=== PATIENT | female | born 1985 | race Caucasian/White ===

== ENCOUNTER 2016-07-21 06:25 | Outpatient (CLI) | payer MEDICAID ==
[2016-07-21 06:57] LABS: APPEARANCE,URINE CLEAR; BILIRUBIN,URINE NEGATIVE (NEGATIVE); GLUCOSE, URINE NEGATIVE (NEGATIVE); KETONES,URINE NEGATIVE (NEGATIVE); LEUKOCYTE ESTERASE,URINE NEGATIVE (NEGATIVE); NITRITE,URINE NEGATIVE (NEGATIVE); PROTEIN,URINE NEGATIVE (NEGATIVE); URINE SPECIFIC GRAVITY 1.003; UROBILINOGEN,URINE NEGATIVE mg/dL (<2.0)
[2016-07-21 07:11] LABS: URINE BARBITURATES SCREEN NEGATIVE; URINE METHADONE SCREEN NEGATIVE; URINE OPIATES LOW NEGATIVE; URINE PHENCYCLIDINE SCREEN NEGATIVE
--- NOTE | 2016-07-21 08:00 | L&D Flow Sheet ---
LD Flowsheet Datetime Report Generated by CPN: 07/21/2016 08:00 Datetime: 07/21/2016 07:47 NBP Sys/Thao/Mean (mmHg): 105 (QS system process) : 56 (QS system process) : 77 (QS system process) Pulse: 82 (QS system process) LaborFlag: Antepartum (QS system process) Datetime: 07/21/2016 07:17 NBP Sys/Thao/Mean (mmHg): 127 (QS system process) : 58 (QS system process) : 84 (QS system process) Pulse: 90 (QS system process) LaborFlag: Antepartum (QS system process) Datetime: 07/21/2016 07:15 Communication Communication: Report Given to @ J Halsmer RN (Janice Ledgerwood, RN) Datetime: 07/21/2016 07:00 Uterine Activity Monitor Mode: External; Palpation (Janice Ledgerwood, RN) Frequency (min): 3-5 (Janice Ledgerwood, RN) Quality: Mild (Janice Ledgerwood, RN) Duration (sec): 60-80 (Janice Ledgerwood, RN) Duration Criteria: Less than Two 120 Second Contractions (Janice Ledgerwood, RN) Pattern: Normal: <= 5 Contractions in 10 Minutes (Janice Ledgerwood, RN) Resting Tone (Palpate): Relaxed (Janice Ledgerwood, RN) Assessment A Monitor Mode: External US (Janice Ledgerwood, RN) FHR Baseline Rate : 140 (Janice Ledgerwood, RN) FHR Baseline Changes: No Baseline Change (Janice Ledgerwood, RN) Variability: Moderate 6-25 bpm (Janice Ledgerwood, RN) Accelerations: 10X10 (Janice Ledgerwood, RN) Decelerations: None (Janice Ledgerwood, RN) Datetime: 07/21/2016 06:46 NBP Sys/Thao/Mean (mmHg): 100 (QS system process) : 55 (QS system process) : 74 (QS system process) Pulse: 90 (QS system process) Respirations: 15 (Janice Jiménez, RN) LaborFlag: Antepartum (QS system process) Datetime: 07/21/2016 06:45 Pain Pain Scale: 4 (Janice Jiménez RN) Pain Presence: Intermittent (Janice Jiménez, RN) Pain Type: Contraction (Janice Hollandgerjahaira, RN) Pain Location: Abdomen; Back (Janice Jiménez, RN) Pain Coping: Breathing Through Contractions (Janice Jiménez, RN) Vaginal Exam Vaginal Bleeding: None (Janice Ledgerwood, RN) Maternal Assessment Level of Consciousness: Fully Conscious (Janice Ledgerwood, RN) DTR's/Clonus: DTRs 2+; No Clonus (Janice Ledgerwood, RN) Headache: Denies (Janice Ledgerwood, RN) Breath Sounds, Left: Clear and Equal (Janice Ledgerwood, RN) Breath Sounds, Right: Clear and Equal (Janice Ledgerwood, RN) Nausea/Vomiting: Denies (Janice Ledgerwood, RN) RUQ Epigastric Pain: Denies (Janice Ledgerwood, RN) Teaching Instructional Method: Demo; Verbal; Patient Instructed (Janice Jiménez, RN) Plan of Care: Plan of Care Discussed (Janice Jiménez, RN) Unit Routine: Mclean to Room; Call Plummer; Bed; Handwashing; Monitoring; Safety/Fall Risk Prevention (Janice Hollandgerwood, RN) LaborFlag: Antepartum (QS system process) Datetime: 07/21/2016 06:39 FHR Baseline Changes: Unable to Determine (Janice Ledgerwood, RN) Datetime: 07/21/2016 06:33 Vital Signs Stage of : Antepartum (Janice Jiménez RN)
[2016-07-21] MEDS ORDERED: HYDROXYZINE PAMOATE 50 MG CAPSULE ONE (08:19)
--- NOTE | 2016-07-21 08:36 | Non Stress Test Report ---
Non Stress Test Datetime Report Generated by CPN: 07/21/2016 08:36 DEMOGRAPHIC EGA NST: 38.0 INDICATION Indication for Study: Ordered by Provider Indication for Study (NST) Other: CTX MONITORING Monitor Explained: Monitor Explained; Test Explained; Patient Verbalized Understanding Time on Monitor: 07/21/2016 06:42 Time off Monitor: 07/21/2016 07:59 NST Duration: 77 NST INTERVENTIONS NST Interventions: PO Hydration Physician Notified NST: Dr. Vasquez Physician Notified NST: DR VASQUZE BABY A: [id number] BABY A Movement : Present Contraction Frequency : 4-7 FHR Baseline : 140 Accelerations : 15X15 Decelerations : None Variability : Moderate 6-25bpm NST Review: Meets Criteria for Reactive NST NST Review and Verified By : MARLENE Clemente Results: Reactive NST REPORT Report Trigger: Send Report Report Trigger: Send Report
--- NOTE | 2016-07-21 10:00 | L&D Flow Sheet ---
LD Flowsheet Datetime Report Generated by CPN: 07/21/2016 10:00 Datetime: 07/21/2016 08:01 Communication Comments: CARE NOTES REVIEWED AND SIGNED TO INCLUDE KICK COUNTS AND LABOR SIGNS. PT HAS OFFICE APPT ON 07/24/16 AND TOLD TO KEEP SCHEDULED APPT. PT AND FAMILY STATED UNDERSTAND. (Steph Halsmer, RN) Datetime: 07/21/2016 08:00 Monitor Mode: External (Steph Halsmer, RN) Frequency (min): IRREGULAR CTX (Steph Halsmer, RN) Quality: Mild (Steph Miguel RN) Duration (sec): 40-80 (Steph Miguel RN) Duration Criteria: Less than Two 120 Second Contractions (Steph Miguel RN) Resting Tone (Palpate): Relaxed (Steph Miguel RN) Monitor Mode: External US (Steph Miguel RN) FHR Baseline Rate : 130 (Steph Miguel RN) Variability: Moderate 6-25 bpm (Steph Miguel RN) Accelerations: 15X15 (Steph Miguel RN) Decelerations: None (Steph Miguel RN)
--- NOTE | 2016-07-21 10:45 | L&D Current Admission ---
Current Admit Datetime Report Generated by CPN: 07/21/2016 10:45 ADMISSION INFORMATION Chief Complaint: Contractions (07/21/2016 06:45:Janice Jiménez, RN)
--- NOTE | 2016-07-21 10:45 | L&D Admission Assessment ---
LD ADM ASMT Datetime Report Generated by CPN: 07/21/2016 10:45 PATIENT ASSESSMENT Assessment Type: Triage (07/21/2016 06:45:Janice Ledgerwood, RN) WEIGHT Weight (lb): 238 (07/21/2016 07:42:QS system process) Weight (kg): 108.2 (07/21/2016 07:42:QS system process) PAIN Pain Scale: 4 (07/21/2016 06:45:Janice Jiménez RN) Pain Presence: Intermittent (07/21/2016 06:45:Janice Jiménez RN) Pain Type: Contraction (07/21/2016 06:45:Janice Jiménez RN) Pain Location: Abdomen; Back (07/21/2016 06:45:Janice Jiménez RN) CONTRACTIONS Frequency (min): IRREGULAR CTX (07/21/2016 08:00:Steph Miguel RN) Frequency (min): 4-7 (07/21/2016 07:30:Steph Miguel RN) Frequency (min): 3-5 (07/21/2016 07:00:Janice Jiménez RN) Duration (sec): 40-80 (07/21/2016 08:00:Steph Miguel RN) Duration (sec): 50-100 (07/21/2016 07:30:Steph Miguel RN) Duration (sec): 60-80 (07/21/2016 07:00:Janice Jiménez RN) Quality: Mild (07/21/2016 08:00:Steph Miguel RN) Quality: Mild (07/21/2016 07:30:Steph Miguel RN) Quality: Mild (07/21/2016 07:00:Janice Jiménez RN) Pattern: Normal: <= 5 Contractions in 10 Minutes (07/21/2016 07:00:Janice Jiménez RN) Resting Tone [place]: Relaxed (07/21/2016 08:00:Steph Miguel RN) Resting Tone [place]: Relaxed (07/21/2016 07:30:Steph Miguel RN) Resting Tone [place]: Relaxed (07/21/2016 07:00:Janice Jiménez RN) VAGINAL EXAM Dilatation (cm): 0.0 (07/21/2016 07:09:Steph Miguel RN) Station: -2 (07/21/2016 07:09:Steph Miguel RN) NEURO Level of Consciousness: Fully Conscious (07/21/2016 06:45:Janice Jiménez RN) DTR's/Clonus: DTRs 2+; No Clonus (07/21/2016 06:45:Janicejames Hollandgerjahaira, RN) Headache: Denies (07/21/2016 06:45:Janice Ledgerwood, RN) Dizziness: No (07/21/2016 06:45:Janicejames Jiménez, RN) Blurred Vision: No (07/21/2016 06:45:Janice Ledgerwood, RN) Extremity Numbness/Tingling : None (07/21/2016 06:45:Janice Hollandgerjahaira, RN) Extremity Movement: Full Range of Motion (07/21/2016 06:45:Janice Ledgerwood, RN) CARDIOVASCULAR Nailbeds: [place] (07/21/2016 06:45:Janice Jiménez, RN) Capillary Refill: Less than 3 Seconds (07/21/2016 06:45:Janice Ledgerwood, RN) Facial Edema: None (07/21/2016 06:45:Janice Ledgerwood, RN) Lluvia's Sign Left Leg: Negative (07/21/2016 06:45:Janicejames Hollandgerwood, RN) Lluvia's Sign Right Leg: Negative (07/21/2016 06:45:Janice Ledgerwood, RN) RESPIRATORY Respiratory Effort: Unlabored; Regular Rhythm; Equal Expansion (07/21/2016 06:45:Janice Skylergerjahaira, RN) Breath Sounds, Left: Clear and Equal (07/21/2016 06:45:Janice Ledgerwood, RN) Breath Sounds, Right: Clear and Equal (07/21/2016 06:45:Janice Ledgerwood, RN) Cough Productivity: None (07/21/2016 06:45:Janice Ledgerwood, RN) GASTROINTESTINAL Nausea/Vomiting: Denies (07/21/2016 06:45:Janice Jiménez, RN) Bowel Sounds: Normoactive; All Quadrants (07/21/2016 06:45:Janice Jiménez, RN) RUQ Epigastric Pain: Denies (07/21/2016 06:45:Janice Jiménez, RN) Bowel Patterns: Soft, Formed Stool (07/21/2016 06:45:Janice Jiménez, RN) Hemorrhoids: None (07/21/2016 06:45:Janice Jiménez, RN) Diet Type: Regular diet (07/21/2016 06:45:Janice Jiménez, RN) Last Meal: 07/20/2016 20:00 (07/21/2016 06:45:Janicejames Hollandgerjahaira, RN) GENITOURINARY Bladder: Nondistended (07/21/2016 06:45:[facility] Frequency of Urination: No (07/21/2016 06:45:[facility], ) Urination Burning: No (07/21/2016 06:45:[facility], ) CVA Tenderness: No (07/21/2016 06:45:[facility], ) Vaginal Bleeding: None (07/21/2016 06:45:[facility], ) Vaginal Discharge Color: N/A (07/21/2016 06:45:[facility]) INTEGUMENTARY Skin Color: Normal for Race [facility]2016 [facility] Skin Temperature: Warm (07/21/2016 06:45:[facility]) Skin Moisture: Dry (07/21/2016 06:45:[facility]) JEAN SKIN ASSESSMENT Jean Scale Sensory Perception: No Impairment- Responds to verbal commands. Has no sensory deficit which would limit ability to feel or voice pain or discomfort (07/21/2016 06:45:Janice Jiménez RN) Jean Scale Moisture: Rarely Moist- Skin is usually dry. Linen only requires changing at routine intervals (07/21/2016 06:45:Janice Jiménez RN) Jean Scale Activity: Walks Frequently- Walks outside the room at least twice a day and inside room at least every 2 hours during the day. (07/21/2016 06:45:Janice Jiménez RN) Jean Scale Mobility: No Limitations- Makes major and frequent changes in position without assistance (07/21/2016 06:45:Janice Jiménez RN) Jaen Scale Nutrition: Excellent- Eats most of every meal. Never refuses a meal. Usually eats a total of 4 or more servings of meat and dairy products. Occasionally eats between meals. Does not require supplementation (07/21/2016 06:45:Janice Jiménez RN) Jean Scale Friction and Shear: No Apparent Problem- Moves in bed and in chair independently and has sufficient muscle strength to lift up completely during move. Maintains good position in bed or chair at all times (07/21/2016 06:45:Janice Jiménez RN) Jean Scale Total: 23 (07/21/2016 06:45:QS system process) Jean Scale Risk: No Risk of Pressure Ulcer Noted at this Time (07/21/2016 06:45:QS system process) SUPPORT Family Support: Family supportive (07/21/2016 06:45:Janice Jiménez RN) Emotional State: Calm/Relaxed (07/21/2016 06:45:Janice Jiménez RN) SAFETY Call Plummer Within Reach: Yes (07/21/2016 06:45:Jaince Jiménez RN) Side Rails Up: Yes (07/21/2016 06:45:Janice Jiménez RN) Bed Wheels Locked: Yes (07/21/2016 06:45:Janice Jiménez RN) Arm Bands Present: Yes (07/21/2016 06:45:Janice Jiménez RN) FALL SCREEN Fall Risk History of Falling: (0) No (07/21/2016 06:45:Janice Jiménez RN) Fall Risk Secondary Diagnosis: (0) No (07/21/2016 06:45:Janice Jiménez RN) Fall Risk Ambulatory Aid: (0) None/Bedrest/Wheelchair/Nurse Assist (07/21/2016 06:45:Janice Jiménez RN) Fall Risk IV Therapy: (0) No (07/21/2016 06:45:Janice Jiménez RN) Fall Risk Gait: (0) Normal/Bedrest/Immobile (07/21/2016 06:45:Janice Jiménez RN) Fall Risk Mental Status: (0) Oriented to Own Ability (07/21/2016 06:45:Janice Jiménez RN) Fall Risk Score: 0 (07/21/2016 06:45:QS system process) Fall Risk Score Definition: No Risk: No action required (07/21/2016 06:45:QS system process) RECENT TRAVEL/INFECTIOUS DISEASE Pt/Family Education: Handwashing Hygiene (07/21/2016 06:45:Janice Jiménez RN) BABY A FHR Baseline Rate (bpm) Baby A: 130 (07/21/2016 08:00:Steph Miguel RN) FHR Baseline Rate (bpm) Baby A: 140 (07/21/2016 07:30:Steph Miguel RN) FHR Baseline Rate (bpm) Baby A: 140 (07/21/2016 07:00:Janice Jiménez RN) Variability Baby A: Moderate 6-25 bpm (07/21/2016 08:00:Steph Miguel RN) Variability Baby A: Moderate 6-25 bpm (07/21/2016 07:30:Steph Miguel RN) Variability Baby A: Moderate 6-25 bpm (07/21/2016 07:00:Janice Jiménez RN) Accelerations Baby A: 15X15 (07/21/2016 08:00:Steph Miguel RN) Accelerations Baby A: 15X15 (07/21/2016 07:30:Steph Miguel RN) Accelerations Baby A: 10X10 (07/21/2016 07:00:Janice Jiménez RN) Decelerations Baby A: None (07/21/2016 08:00:Steph Miguel RN) Decelerations Baby A: None (07/21/2016 07:30:Steph Miguel RN) Decelerations Baby A: None (07/21/2016 07:00:Janice Jiménez RN)
--- NOTE | 2016-07-21 10:45 | L&D Discharge Summary ---
OB Discharge Summary Datetime Report Generated by CPN: 07/21/2016 10:45 DISCHARGE DIAGNOSIS Diagnosis/Symptoms: False Labor Parity: 1 DIET/ACTIVITY/RESTRICTIONS Diet: Regular Activity: Normal Activity TEACHING/INSTRUCTIONS/REFERRALS Unable to Give Instructions: N/A Instructions Given To: PT AND FAMILY Instructions Understood: Patient Verbalized Understanding; Support Person Verbalized Understanding Referrals: None Educational Materials- Other: CARE NOTES REVIEWED AND SIGNED TO INCLUDE KICK COUNTS AND LABOR SIGNS. PT HAS OFFICE APPT ON 07/24/16 AND TOLD TO KEEP SCHEDULED APPT. PT AND FAMILY STATED UNDERSTAND. DISCHARGE INFORMATION Discharged AMA: No Discharge Date/Time: 07/21/2016 08:27 Discharged To: Home Discharge Provider Name: DR VASQUEZ Accompanied By: FAMILY Discharge Method: Ambulatory Condition: Stable FOLLOW UP INFORMATION Follow Up With: SergeMD Follow Up On: 3-5 Days Follow Up Phone Number: SergeMD -
--- NOTE | 2016-07-21 10:45 | L&D General Admission ---
General Admit Datetime Report Generated by CPN: 07/21/2016 10:45 INFORMATION Patient Age: 30 (05/21/2016 13:00:QS system process) EDC: 08/04/2016 00:00 (07/21/2016 06:27:Susannah West RN) : 3 (07/21/2016 06:27:Janice Jiménez RN) Para: 1 (07/21/2016 06:27:Janice Jiménez RN) Term: 1 (07/21/2016 06:27:Janice Jiménez RN) : 0 (07/21/2016 06:27:Janice Jiménez RN) Spontaneous Abortions: 1 (07/21/2016 06:27:Janice Jiménez RN) [place] (07/21/2016 06:27:Janice Jiménez RN) CARE Primary Labor Economist: [employer] (07/21/2016 06:27:Janice Jiménez RN) Month of 1st Visit: October (07/21/2016 06:27:Janice Jiménez RN) Adequate Care: Yes (07/21/2016 06:27:Janice Jiménez RN) Height (in): 67 (07/21/2016 07:42:QS system process) ALLERGIES Medication Allergy: No (07/21/2016 06:27:Janice Jiménez RN) Medication Allergies: No Known Allergies (07/21/2016) (07/21/2016 07:38:QS system process) Medication Allergies: No Known Allergies (01/17/2014) (05/21/2016 13:00:QS system process) Latex Allergy: No Latex Allergies (07/21/2016 06:27:Janice Jiménez RN) COMMUNICATION Primary Language: Ethiopian (07/21/2016 06:27:Janice Jiménez RN) Medical Tx Preferred Language: Ethiopian (07/21/2016 06:27:Janice Jiménez RN) DEMOGRAPHICS Address: [address] [place] [id number] (07/21/2016 06:25:QS system process) Address: [address] [place] [id number] (06/30/2016 17:33:QS system process) Address: [address] [place] [id number] (05/21/2016 13:00:QS system process) Zipcode: [address] (06/30/2016 17:33:QS system process) Zipcode: [address] (05/21/2016 13:00:QS system process) Home (05/21/2016 13:00:QS system process) SSN: [id number] (05/21/2016 13:00:QS system process) Next of Kin Name: DESTINI FRAZIER (05/21/2016 13:00:QS system process) Next of Kin (05/21/2016 13:00:QS system process) Next of Kin Relationship: MO (05/21/2016 13:00:QS system process) Date of : 1985 (05/21/2016 13:00:QS system process) Marital Status: (05/21/2016 13:00:QS system process) Sex: Female (05/21/2016 13:00:QS system process) Race: (05/21/2016 13:00:QS system process) Ethnicity: Non- or (05/21/2016 13:00:QS system process) Anabaptist: None (06/30/2016 17:33:QS system process) DRUG AND ALCOHOL USE Alcohol: No (07/21/2016 06:27:Janice Jiménez RN) Cigarettes: Current Everyday Smoker. [id number] (07/21/2016 06:27:Janice Jiménez RN) Average Cigarettes Smoked: < 5 per day (07/21/2016 06:27:Janice Jiménez RN) Advised to Stop Smoking: Yes (07/21/2016 06:27:Janice Jiménez RN) Marijuana: Yes (07/21/2016 06:27:Janice Jiménez RN) Cocaine: No (07/21/2016 06:27:Janice Jiménez RN) Other Illicit Drugs: No (07/21/2016 06:27:Janice Jiménez RN) VACCINE HISTORY Influenza Vaccine: No (07/21/2016 06:27:Janice Jiménez RN) Wood Treating Inspector: [facility] (07/21/2016 06:27:Janice Jiménez RN) Feeding Preference: Formula (07/21/2016 06:27:Janice Jiménez RN) Benefit of Breast Feed Discussed: Yes (07/21/2016 06:27:Janice Jiménez RN) Circumcision: N/A (07/21/2016 06:27:Janice Jiménez RN) Classes Attended: No (07/21/2016 06:27:Janice Jiménez RN) Tubal Authorization Signed: N/A (07/21/2016 06:27:Janice Jiménez RN) Consent: N/A (07/21/2016 06:27:Janice Jiménez RN) Consent Signed: No (07/21/2016 06:27:Janice Jiménez RN) Plans for Labor and Delivery: None (07/21/2016 06:27:Janice Jiménez RN) Support Person: Destini (07/21/2016 06:27:Janice Jiménez RN) Support Person Relationship: Mother (07/21/2016 06:27:Janice Jiménez RN) Cultural/Spritual Practice: No (07/21/2016 06:27:Janice Jiménez RN) Spir/Cult Dietary Needs: No (07/21/2016 06:27:Janice Jiménez RN) LIVING SITUATION/DISCHARGE PLAN Living Arrangements: House (07/21/2016 06:27:Janice Jiménez RN) Adequate Access to:: Electric; Heat; Refrigeration; Plumbing/Running water; Phone; Transportation (07/21/2016 06:27:Janice Jiménez RN) WIC Program: Yes (07/21/2016 06:27:Janice Jiménez RN) Discharge Medical Laboratory Technical Officer Person: (07/21/2016 06:27:Janice Jiménez RN) Person to Help after Discharge: (07/21/2016 06:27:Janice Jiménez RN) Specify Current Resource Used: WIC (07/21/2016 06:27:Janice Jiménez RN) Outside Agency/Certified Industrial Hygienist: No (07/21/2016 06:27:Janice Jiménez RN) Car Seat for Discharge: Yes (07/21/2016 06:27:Janice Jiménez RN) Adoption Requested: No (07/21/2016 06:27:Janice Jiménez RN) LABS Blood Type: O Positive (07/21/2016 06:27:Ophelia Tolbert RN) Antibody Screen: negative (Annotations: Data stored by [employer]OT[employer] on behalf of user) (07/21/2016 06:27:Ophelia Tolbert RN) RPR/VDRL: Nonreactive (07/21/2016 06:27:Ophelia Tolbert RN) HIV Results: non-reactive (07/21/2016 06:27:Ophelia Tolbert RN) Hepatitis B: Negative (07/21/2016 06:27:Ophelia Tolbert RN) Rubella: Immune (07/21/2016 06:27:Ophelia Tolbert RN) Rubella Titer: 2.70 (07/21/2016 06:27:Ophelia Tolbert RN) Varicella: Non Susceptible (07/21/2016 06:27:Ophelia Tolbert RN) OB/PREVIOUS HISTORY Previous Procedures: Ultrasound (07/21/2016 06:27:Janice Jiménze RN) Current Procedures: Ultrasound (07/21/2016 06:27:Janice Jiménez RN) History of Previous : No (07/21/2016 06:27:Janice Jiménez RN) History of Gestational Diabetes: No (07/21/2016 06:27:Janice Jiménez RN) History of PIH: No (07/21/2016 06:27:Janice Jiménez RN) History of Incompetent Cervix: No (07/21/2016 06:27:Janice Jiménez RN) History of Placenta Previa/Abrup: No (07/21/2016 06:27:Janice Jiménez RN) History of Macrosomia: No (07/21/2016 06:27:Janice Jiménez RN) History of IUGR: No (07/21/2016 06:27:Janice Jiménez RN) History of Hemorrhage: No (07/21/2016 06:27:Janice Jiménez RN) History of Loss/Stillborn: No (07/21/2016 06:27:Janice Jiménez RN) History of : No (07/21/2016 06:27:Janice Jiménez RN) History of D (Rh) Sensitization: No (07/21/2016 06:27:Janice Jiménez RN) History Recurrent Loss/Stillborn: No (07/21/2016 06:27:Janice Jiménez RN) History Depression/PP Depression: No (07/21/2016 06:27:Janice Jiménez RN) History of Uterine Anomaly/GITA: No (07/21/2016 06:27:Janice Jiménez RN) History of Infertility: No (07/21/2016 06:27:Janice Jiménez RN) History of ART Treatment: No (07/21/2016 06:27:Janice Jiménez RN) History of GITA: No (07/21/2016 06:27:Janice Jiménez RN) Comments Obstetrical History: 2009- baby girl (reason-baby weight) 2015- 2016 current (07/21/2016 06:27:Janice Jiménez RN) MEDICAL HISTORY Med Hx Diabetes: No (07/21/2016 06:27:Janice Jiménez RN) Med Hx Hypertension: No (07/21/2016 06:27:Janice Jiménez RN) Med Hx Heart Disease: No (07/21/2016 06:27:Janice Jiménez RN) Med Hx Autoimmune Disorder: No (07/21/2016 06:27:Janice Jiménez RN) Med Hx Kidney Disease/UTI: No (07/21/2016 06:27:Janice Jiménez RN) Med Hx Neurologic/Epilepsy: No (07/21/2016 06:27:Janice Jiménez RN) Med Hx Psychiatric Disorders: No (07/21/2016 06:27:Janice Jiménez RN) Med Hx Hepatitis/Liver Disease: No (07/21/2016 06:27:Janice Jiménez RN) Med Hx Varicosities/Phlebitis: No (07/21/2016 06:27:Janice Jiménez RN) Med Hx Thyroid Dysfunction: No (07/21/2016 06:27:Janice Jiménez RN) Med Hx Trauma/Violence: No (07/21/2016 06:27:Janice Jiménez RN) Med Hx Blood Transfusion: No (07/21/2016 06:27:Janice Jiménez RN) Med Hx Pulmonary (Asthma,TB): No (07/21/2016 06:27:Janice Jiménez RN) Med Hx Breast: No (07/21/2016 06:27:Janice Jiménez RN) Med Hx INCOME TAX EXPERT Surgery: Yes (07/21/2016 06:27:Janice Jiménez RN) Med Hx Hospitalization/Surgery: No (07/21/2016 06:27:Janice Jiménez RN) Med Hx Anesthetic Complications: No (07/21/2016 06:27:Janice Jiménez RN) Med Hx Abnormal Pap Smear: Yes (07/21/2016 06:27:Janice Jiménez RN) Other Medical Diseases: No (07/21/2016 06:27:Janice Jiménez RN) Med Hx Significant Family Hx: No (07/21/2016 06:27:Janice Jiménez RN) Details of Med/Surg Hx: 2009 2002 HPV (07/21/2016 06:27:Janice Jiménez RN) INFECTIOUS HISTORY Inf Hx Gonorrhea: No (07/21/2016 06:27:Janice Jiménez RN) Inf Hx Chlamydia: No (07/21/2016 06:27:Janice Jiménez RN) Inf Hx Syphilis: No (07/21/2016 06:27:Janice Jiménez RN) Inf Hx HIV/AIDS: No (07/21/2016 06:27:Janice Jiménez RN) Inf Hx Human Papilloma Virus: Yes (07/21/2016 06:27:Janice Jiménez RN) Inf Hx Pt/Partner Genital Herpes: No (07/21/2016 06:27:Janice Jiménez RN) Inf Hx Tuberculosis/Exposure: No (07/21/2016 06:27:Janice Jiménez RN) Inf Hx Hepatitis B,C: No (07/21/2016 06:27:Janice Jiménez RN) Inf Hx Rash or Viral Illness: No (07/21/2016 06:27:Janice Jiménez RN) GENETIC HISTORY Gen Hx Age >=35 at [facility]: No (07/21/2016 06:27:Janice Jiménez RN) Gen Hx Thalassemia: No (07/21/2016 06:27:Janice Jiménez RN) Gen Hx Congenital Heart Defect: No (07/21/2016 06:27:Janice Jiménez RN) Gen Hx Neural Tube Defect: No (07/21/2016 06:27:Janice Jiménez RN) Gen Hx Down's Syndrome: No (07/21/2016 06:27:Janice Jiménez RN) Gen Hx Sam-Sachs: No (07/21/2016 06:27:Janice Jiménez RN) Gen Hx Manny: No (07/21/2016 06:27:Janice Jiménez RN) Gen Hx Familial Dysautonomia: No (07/21/2016 06:27:Janice Jiménez RN) Gen Hx Sickle Cell Disease/Trait: No (07/21/2016 06:27:Janice Jiménez RN) Gen Hx Hemophilia/Blood Disorder: No (07/21/2016 06:27:Janice Jiménez RN) Gen Hx Muscular Dystrophy: No (07/21/2016 06:27:Janice Jiménez RN) Gen Hx Cystic Fibrosis: No (07/21/2016 06:27:Janice Jiménez RN) Gen Hx [place] Chorea: No (07/21/2016 06:27:Janice Jiménez RN) Gen Hx Mental Retardation/Autism: No (07/21/2016 06:27:Janice Jiménez RN) Gen Hx Tested for Fragile X: No (07/21/2016 06:27:Janice Jiménez RN) Gen Hx Other Inher/Chromosomal: No (07/21/2016 06:27:Janice Jiménez RN) Gen Hx Maternal Metabolic DO: No (07/21/2016 06:27:Janice Jiménez RN) Gen Hx Pt Father or FOB Defect: No (07/21/2016 06:27:Janice Jiménez RN) Gen Hx Other Genetic History: No (07/21/2016 06:27:Janice Jiménez RN) Gen Hx Drugs/Meds since LMP: No (07/21/2016 06:27:Janice Jiménez RN)
--- NOTE | 2016-07-21 10:45 | L&D Flow Sheet ---
LD Flowsheet Datetime Report Generated by CPN: 07/21/2016 10:45 Datetime: 07/21/2016 08:01 Communication Comments: CARE NOTES REVIEWED AND SIGNED TO INCLUDE KICK COUNTS AND LABOR SIGNS. PT HAS OFFICE APPT ON 3/17/17 AND TOLD TO KEEP SCHEDULED APPT. PT AND FAMILY STATED UNDERSTAND. (Steph Halsmer, RN) Datetime: 07/21/2016 08:00 Uterine Activity Monitor Mode: External (Steph Halsmer, RN) Frequency (min): IRREGULAR CTX (Steph Halsmer, RN) Quality: Mild (Steph Halsmer, RN) Duration (sec): 40-80 (Steph Halsmer, RN) Duration Criteria: Less than Two 120 Second Contractions (Steph Halsmer, RN) Resting Tone (Palpate): Relaxed (Steph Halsmer, RN) Assessment A Monitor Mode: External US (Steph Halsmer, RN) FHR Baseline Rate : 130 (Steph Halsmer, RN) Variability: Moderate 6-25 bpm (Steph Halsmer, RN) Accelerations: 15X15 (Steph Halsmer, RN) Decelerations: None (Steph Halsmer, RN) Datetime: 07/21/2016 07:59 Patient Care I/O Interventions: Up to BR (Steph Halsmer, RN) Communication Comments: ORDERS RECEIEVED TO D/C PT TO HOME WITH VISTARIL [address] PO NOW [address] VASQUEZ. (Steph Halsmer, RN) Datetime: 07/21/2016 07:55 Actions for Decelerations: Provider Reviewed Strip (Steph Halsmer, RN) Communication Communication: Provider Orders Received (Steph Halsmer, RN) Datetime: 07/21/2016 07:47 NBP Sys/Thao/Mean (mmHg): 105 (QS system process) : 56 (QS system process) : 77 (QS system process) Pulse: 82 (QS system process) Respirations: 16 (Steph Halsmer, RN) LaborFlag: Antepartum (QS system process) Datetime: 07/21/2016 07:30 Uterine Activity Monitor Mode: External; Palpation (Steph Halsmer, RN) Frequency (min): 4-7 (Steph Halsmer, RN) Quality: Mild (Steph Halsmer, RN) Duration (sec): 50-100 (Steph Halsmer, RN) Duration Criteria: Less than Two 120 Second Contractions (Steph Halsmer, RN) Resting Tone (Palpate): Relaxed (Steph Halsmer, RN) Assessment A Monitor Mode: External US (Steph Halsmer, RN) FHR Baseline Rate : 140 (Steph Halsmer, RN) FHR Baseline Changes: No Baseline Change (Steph Halsmer, RN) Variability: Moderate 6-25 bpm (Steph Halsmer, RN) Accelerations: 15X15 (Steph Halsmer, RN) Decelerations: None (Steph Halsmer, RN) Datetime: 07/21/2016 07:17 NBP Sys/Thao/Mean (mmHg): 127 (QS system process) : 58 (QS system process) : 84 (QS system process) Pulse: 90 (QS system process) Respirations: 16 (Steph Halsmer, RN) LaborFlag: Antepartum (QS system process) Datetime: 07/21/2016 07:15 Communication Communication: Report Given to @ J Halsmer RN (Janice Ledgerwood, RN) Datetime: 07/21/2016 07:09 Vaginal Exam Dilatation (cm): 0.0 (Steph Choi, RN) Station: -2 (Steph Choi, RN) Exam by: Nani CHOI RN (Steph Choi, ) Datetime: 07/21/2016 07:00 Uterine Activity Monitor Mode: External; Palpation (Janice Jiménez, ) Frequency (min): 3-5 (Janice Jiménez, ) Quality: Mild (Janice Jiménez, ) Duration (sec): 60-80 (Janice Jiménez, ) Duration Criteria: Less than Two 120 Second Contractions (Janice Ledgerwood, RN) Pattern: Normal: <= 5 Contractions in 10 Minutes (Janice Ledgerwood, RN) Resting Tone (Palpate): Relaxed (Janice Ledgerwood, RN) Assessment A Monitor Mode: External US (Janice Ledgerwood, RN) FHR Baseline Rate : 140 (Janice Ledgerwood, RN) FHR Baseline Changes: No Baseline Change (Janice Ledgerwood, RN) Variability: Moderate 6-25 bpm (Janice Ledgerwood, RN) Accelerations: 10X10 (Janice Ledgerwood, RN) Decelerations: None (Janice Ledgerwood, RN) Datetime: 07/21/2016 06:46 NBP Sys/Thao/Mean (mmHg): 100 (QS system process) : 55 (QS system process) : 74 (QS system process) Pulse: 90 (QS system process) Respirations: 15 (Janice Ledgerwood, RN) LaborFlag: Antepartum (QS system process) Datetime: 07/21/2016:45 Pain Pain Scale: 4 ([facility], ) Pain Presence: Intermittent ([facility], ) Pain Type: Contraction ([facility], ) Pain Location: Abdomen; Back ([facility], ) Pain Coping: Breathing Through Contractions ([facility], ) Vaginal Bleeding: None ([facility], ) Maternal Assessment Level of Consciousness: Fully Conscious ([facility], ) DTR's/Clonus: DTRs 2+; No Clonus ([facility], RN) Headache: Denies (Janice Jiménez, MARLENE) Breath Sounds, Left: Clear and Equal (Janice Jiménez, RN) Breath Sounds, Right: Clear and Equal (Janice Jiménez, RN) Nausea/Vomiting: Denies (Janice Jiménez, RN) RUQ Epigastric Pain: Denies (Janice Jiménez, RN) Teaching Instructional Method: Demo; Verbal; Patient Instructed (Janice Jiménez RN) Plan of Care: Plan of Care Discussed (Janice Jiménez RN) Unit Routine: Roper to Room; Call Plummer; Bed; Handwashing; Monitoring; Safety/Fall Risk Prevention (Janice Jiménez RN) LaborFlag: Antepartum (QS system process) Datetime: 07/21/2016 06:39 FHR Baseline Changes: Unable to Determine (Janice Jiménez RN) Datetime: 07/21/2016 06:33 Vital Signs Stage of : Antepartum (Janice Jiménez RN)
--- NOTE | 2016-07-21 10:45 | Antepartum Discharge Summary ---
Antepartum DC Datetime Report Generated by CPN: 07/21/2016 10:45 DIET/ACTIVITY/RESTRICTIONS Diet: Regular (07/21/2016 08:35:Steph Halsmer, RN) Activity: Normal Activity (07/21/2016 08:35:Steph Halsmer, RN) TEACHING/INSTRUCTIONS/REFERRALS Instructions Given To: PT AND FAMILY (07/21/2016 08:35:Steph Halsmer, RN) Instructions Understood: Patient Verbalized Understanding; Support Person Verbalized Understanding (07/21/2016 08:35:Steph Miguel RN) Unable to Give Instructions: N/A (07/21/2016 08:35:Steph Miguel RN) Referrals: None (07/21/2016 08:35:Steph Miguel RN) Educational Materials- Other: CARE NOTES REVIEWED AND SIGNED TO INCLUDE KICK COUNTS AND LABOR SIGNS. PT HAS OFFICE APPT ON 07/24/16 AND TOLD TO KEEP SCHEDULED APPT. PT AND FAMILY STATED UNDERSTAND. (07/21/2016 08:35:Steph Miguel RN) DISCHARGE INFORMATION Discharged AMA: No (07/21/2016 08:35:Steph Miguel RN) Discharge Date/Time: 07/21/2016 08:27 (07/21/2016 08:35:Steph Miguel RN) Discharged To: Home (07/21/2016 08:35:Steph Miguel RN) Discharge Provider Name: DR VASQUEZ (07/21/2016 08:35:Steph Miguel RN) Accompanied By: FAMILY (07/21/2016 08:35:Steph Miguel RN) Discharge Method: Ambulatory (07/21/2016 08:35:Steph Miguel RN) Condition: Stable (07/21/2016 08:35:Steph Miguel RN) FOLLOW UP INFORMATION Follow Up With: [facility] (07/21/2016 08:35:Steph Miguel RN) Follow Up On: 3-5 Days (07/21/2016 08:35:Steph Miguel RN) Follow Up Phone Number: [facility] - (07/21/2016 08:35:Steph Miguel RN)
== END 2016-07-21 08:01 | disposition home or self-care (01) ==
LOC: LC 06:25
PROVIDERS: ATTEND Specialist
PROC: 4A1HXCZ Monitoring of Products of Conception, Cardiac Rate, External Approach (ICD-10-PCS; principal; 2016-07-21)
DX: O47.1 False labor at or after 37 completed weeks of gestation (principal); Z3A.38 38 weeks gestation of pregnancy
CPT/HCPCS: 59025; 81005; 80307; J3490

== ENCOUNTER 2016-07-29 05:02 | Inpatient (IN) | payer MEDICAID, OTHER ==
[2016-07-28 10:36] LABS: APPEARANCE,URINE SLIGHTLY-CLOUDY; BILIRUBIN,URINE NEGATIVE (NEGATIVE); GLUCOSE, URINE NEGATIVE (NEGATIVE); KETONES,URINE NEGATIVE (NEGATIVE); LEUKOCYTE ESTERASE,URINE NEGATIVE (NEGATIVE); NITRITE,URINE NEGATIVE (NEGATIVE); PROTEIN,URINE NEGATIVE (NEGATIVE); URINE SPECIFIC GRAVITY 1.016; UROBILINOGEN,URINE NEGATIVE mg/dL (<2.0)
[2016-07-28 10:55] LABS: ABSOLUTE BASOPHILS # (AUTO) 0.1 10^3/uL (0.0-0.2); ABSOLUTE EOSINOPHILS # (AUTO) 0.1 10^3/uL (0.0-0.6); ABSOLUTE LYMPHOCYTES (AUTO) 1.8 10^3/uL (0.5-4.7); ABSOLUTE MONOCYTES (AUTO) 0.6 10^3/uL (0.1-1.4); ABSOLUTE NEUT (AUTO) 4.7 10^3/uL (1.7-8.2); BASOPHILS % (AUTO) 1.3 % (0-2); EOSINOPHILS % (AUTO) 0.8 % (0-6); HEMATOCRIT 33.1 % (36.0-47.0); HEMOGLOBIN 11.1 g/dL (12.0-15.5); HGB HCT DIFFERENCE 0.2; LYMPHOCYTES % (AUTO) 25.2 % (13-45); MEAN CORPUSCULAR HEMOGLOBIN 26.3 pg (27.0-33.4); MEAN CORPUSCULAR HGB CONC 33.4 g/dL (32.0-36.0); MEAN CORPUSCULAR VOLUME 79 fl (80-97); MONOCYTES % (AUTO) 7.8 % (3-13); SEGMENTED NEUTROPHILS % (AUTO) 64.9 % (42-78); WHITE BLOOD COUNT 7.3 10^3/uL (4.0-10.5)
[2016-07-28 11:08] LABS: URINE BARBITURATES SCREEN NEGATIVE; URINE METHADONE SCREEN NEGATIVE; URINE OPIATES LOW NEGATIVE; URINE PHENCYCLIDINE SCREEN NEGATIVE
[~2016-07-29 05:02] MED LIST: CEFAZOLIN 1 GM/D5W RTU 1 GM/50 ML RTUPB IV PRN; LACTATED RINGERS 1000 ML IV PRN; LIDOCAINE 0.5% INJ-PF (5 MG/ML) 50 ML SDV SUBCUT PRN
[2016-07-29] MEDS ORDERED: PROPOFOL INJ 200 MG/20 ML VIAL IV ONE (07:39)
[2016-07-29] MEDS ORDERED: MIDAZOLAM 2 MG/2 ML INJ ONE (07:39)
[2016-07-29] MEDS ORDERED: EPHEDRINE SULFATE INJ 50 MG/1 ML AMPULE ONE (07:39)
[2016-07-29] MEDS ORDERED: OXYTOCIN 10 UNIT/ML VIAL ONE (07:39)
[2016-07-29] MEDS ORDERED: FENTANYL CITRATE INJ/PF 100 MCG/2 ML AMPUL ONE (07:39)
[2016-07-29] MEDS ORDERED: DIPHENHYDRAMINE HCL 50 MG/ML VIAL IV PRN (07:54)
[2016-07-29] MEDS ORDERED: PROMETHAZINE HCL INJ 25 MG/1 ML VIAL IV PRN (07:54)
[2016-07-29] MEDS ORDERED: MEPERIDINE HCL/PF INJ 25 MG/1 ML DISP.SYRIN IV PRN (07:54)
[2016-07-29] MEDS ORDERED: OXYCODONE-ACETAMINOPHEN 5-325 MG TABLET PO PRN ×3 (07:54→10:01)
[2016-07-29] MEDS ORDERED: MORPHINE SULFATE 10 MG/ML INJ IV PRN (07:54)
[2016-07-29] MEDS ORDERED: FENTANYL CITRATE INJ/PF 100 MCG/2 ML AMPUL IV PRN ×3 (07:54)
[2016-07-29] MEDS ORDERED: KETOROLAC TROMETHAMINE INJ/PF 30 MG/1 ML SDV ONE (09:25)
[2016-07-29] MEDS ORDERED: ACETAMINOPHEN 100 ML IV ONE (09:25)
[2016-07-29] MEDS ORDERED: HYDROMORPHONE HCL INJ/PF 2 MG/ML AMPULE IV PRN (10:01)
[2016-07-29] MEDS ORDERED: ACETAMINOPHEN 325 MG TABLET PO PRN (10:01)
[2016-07-29] MEDS ORDERED: PROMETHAZINE HCL INJ 25 MG/1 ML VIAL IM PRN (10:01)
[2016-07-29] MEDS ORDERED: OXYTOCIN/NORMAL SALINE 20 UNIT/1,000 ML RTUINJ INJ PRN (10:01)
[2016-07-29] MEDS ORDERED: DIPH/PERTUSS(ACELL)/TETANUS VAC/PF 0.5 ML SYR (>=10YO) IM PRN (10:01)
[2016-07-29] MEDS ORDERED: MEASLES,MUMPS&RUBELLA VACC/PF 0.5 ML VIAL SUBCUT PRN (10:01)
[2016-07-29] MEDS ORDERED: RINGERS SOLUTION,LACTATED 1,000 ML IV PRN (10:02)
[2016-07-29] MEDS ORDERED: ONDANSETRON HCL INJ/PF 4 MG/2 ML SDV IV ONE (10:16)
[2016-07-29] MEDS ORDERED: HYDROMORPHONE HCL INJ/PF 2 MG/ML AMPULE ONE (10:19)
[2016-07-29] MEDS ORDERED: ONDANSETRON HCL INJ/PF 4 MG/2 ML SDV ONE ×2 (10:19→13:32)
[2016-07-29] MEDS: OXYCODONE-ACETAMINOPHEN 5-325 MG TABLET PO PRN ×3 (11:35→22:29)
[2016-07-29] MEDS ORDERED: PHENYLEPHRINE HCL INJ/PF 10 MG/1 ML SDV ONE (13:32)
[2016-07-29] MEDS ORDERED: ONDANSETRON HCL INJ/PF 4 MG/2 ML SDV IV PRN (13:57)
[2016-07-29] MEDS ORDERED: ONDANSETRON 4 MG TAB.RAPDIS PO PRN (13:57)
[2016-07-29] MEDS ORDERED: RINGERS SOLUTION,LACTATED 500 ML IV ONE (14:00)
[2016-07-29] MEDS ORDERED: ALBUTEROL SULFATE 0.083% NEB 2.5 MG/3 ML AMPUL NEB ONE ×3 (15:45→21:31)
[2016-07-29] MEDS: KETOROLAC TROMETHAMINE INJ/PF 30 MG/1 ML SDV IV SCH (18:28)
[2016-07-29] MEDS: DOCUSATE SODIUM 100 MG CAPSULE PO SCH (18:29)
--- NOTE | 2016-07-29 19:01 | L&D Flow Sheet ---
LD Flowsheet Datetime Report Generated by CPN: 07/29/2016 19:00 Datetime: 07/29/2016 11:00 Stage of : Recovery (Nan Burgos RN) NBP Sys/Thao/Mean (mmHg): 109 (QS system process) : 59 (QS system process) : 78 (QS system process) Pulse: 70 (QS system process) Respirations: 18 (Nan Burgos RN) Temperature (F): 97.9 (Nan Burgos RN) Temperature (C): 36.6 (QS system process) Temperature Route: Oral (Nan Burgos RN) Pain Scale: 2 (Nan Burgos RN) Pain Presence: Intermittent (Nan Burgos RN) Pain Type: Ache (Nan Burgos RN) Pain Location: Abdomen (Nan Burgos RN) Pain Relief Measures: Comfort Measures (Nan Burgos RN) Datetime: 07/29/2016 10:59 Pulse: 71 (QS system process) SpO2 (%): 95 (QS system process) Datetime: 07/29/2016 10:56 NBP Sys/Thao/Mean (mmHg): 107 (QS system process) : 56 (QS system process) : 79 (QS system process) Pulse: 72 (QS system process) Datetime: 07/29/2016 10:54 Pulse: 66 (QS system process) SpO2 (%): 96 (QS system process) Datetime: 07/29/2016 10:50 NBP Sys/Thao/Mean (mmHg): 102 (QS system process) : 56 (QS system process) : 75 (QS system process) Pulse: 63 (QS system process) Datetime: 07/29/2016 10:49 Pulse: 67 (QS system process) SpO2 (%): 93 (QS system process) Datetime: 07/29/2016 10:45 Stage of : Recovery (Nan Burgos RN) NBP Sys/Thao/Mean (mmHg): 108 (QS system process) : 55 (QS system process) : 79 (QS system process) Pulse: 62 (QS system process) Respirations: 16 (Nan Burgos RN) Pain Scale: 2 (Nan Burgos RN) Pain Presence: Intermittent (Nan Burgos RN) Pain Type: Ache (Nan Burgos RN) Pain Location: Abdomen (Nan Burgos RN) Pain Relief Measures: Comfort Measures (Nan Burgos RN) Datetime: 07/29/2016 10:44 Pulse: 63 (QS system process) SpO2 (%): 94 (QS system process) Datetime: 07/29/2016 10:40 NBP Sys/Thao/Mean (mmHg): 107 (QS system process) : 57 (QS system process) : 79 (QS system process) Pulse: 58 (QS system process) Datetime: 07/29/2016 10:39 Pulse: 76 (QS system process) SpO2 (%): 98 (QS system process) Datetime: 07/29/2016 10:37 Pulse: 63 (QS system process) SpO2 (%): 94 (QS system process) Datetime: 07/29/2016 10:35 NBP Sys/Thao/Mean (mmHg): 114 (QS system process) : 62 (QS system process) : 79 (QS system process) Pulse: 65 (QS system process) Datetime: 07/29/2016 10:34 Stage of : Recovery (Nan Burgos RN) Pulse: 67 (QS system process) SpO2 (%): 97 (QS system process) Datetime: 07/29/2016 10:30 Stage of : Recovery (Nan Burgos RN) NBP Sys/Thao/Mean (mmHg): 119 (QS system process) : 61 (QS system process) : 82 (QS system process) Pulse: 69 (QS system process) Respirations: 18 (Nan Burgos RN) Pain Scale: 3 (Nan Burgos RN) Pain Presence: Constant (Nan Burgos RN) Pain Type: Pressure; Ache (Nan Burgos RN) Pain Location: Abdomen (Nan Burgos RN) Pain Relief Measures: Pain Medication Given; Comfort Measures (Nan Burgos RN) Datetime: 07/29/2016 10:29 Pulse: 73 (QS system process) SpO2 (%): 96 (QS system process) Datetime: 07/29/2016 10:25 NBP Sys/Thao/Mean (mmHg): 120 (QS system process) : 71 (QS system process) : 89 (QS system process) Pulse: 81 (QS system process) Datetime: 07/29/2016 10:24 Pulse: 70 (QS system process) SpO2 (%): 96 (QS system process) Datetime: 07/29/2016 10:23 Stage of : Recovery (Nan Margyjose Burgos, RN) Datetime: 07/29/2016 10:21 Stage of : Recovery (Nan Burgos RN) Pain Scale: 4 (Nan Burgos RN) Pain Presence: Constant (Nan Burgos RN) Pain Type: Sharp; Pressure; Ache (Nan Burgos RN) Pain Location: Abdomen (Nan Burgos RN) Pain Relief Measures: Pain Medication Given (Nan Burgos RN) Datetime: 07/29/2016 10:20 NBP Sys/Thao/Mean (mmHg): 112 (QS system process) : 66 (QS system process) : 85 (QS system process) Pulse: 60 (QS system process) Datetime: 07/29/2016 10:19 Pulse: 60 (QS system process) SpO2 (%): 99 (QS system process) Datetime: 07/29/2016 10:15 Stage of : Recovery (Nan Burgos RN) NBP Sys/Thao/Mean (mmHg): 121 (QS system process) : 74 (QS system process) : 93 (QS system process) Pulse: 61 (QS system process) Respirations: 18 (Nan Burgos RN) Pain Scale: 3 (Nan Burgos RN) Pain Presence: Constant (Nan Burgos RN) Pain Type: Sharp; Ache (Nan Burgos RN) Pain Location: Abdomen (Nan Burgos RN) Pain Relief Measures: Comfort Measures (Nan Burgos RN) Datetime: 07/29/2016 10:14 Pulse: 62 (QS system process) SpO2 (%): 99 (QS system process) Datetime: 07/29/2016 10:10 NBP Sys/Thao/Mean (mmHg): 118 (QS system process) : 67 (QS system process) : 85 (QS system process) Pulse: 64 (QS system process) Datetime: 07/29/2016 10:09 Pulse: 61 (QS system process) SpO2 (%): 100 (QS system process) Datetime: 07/29/2016 10:05 NBP Sys/Thao/Mean (mmHg): 121 (QS system process) : 63 (QS system process) : 86 (QS system process) Pulse: 65 (QS system process) Datetime: 07/29/2016 10:04 Pulse: 65 (QS system process) SpO2 (%): 100 (QS system process) Datetime: 07/29/2016 10:00 Stage of : Recovery (Nan Burgos RN) NBP Sys/Thao/Mean (mmHg): 111 (QS system process) : 63 (QS system process) : 81 (QS system process) Pulse: 62 (QS system process) Respirations: 18 (Nan Burgos RN) Temperature (F): 96.9 (Nan Burgos RN) Temperature (C): 36.1 (QS system process) Temperature Route: Axillary (Nan Burgos RN) Pain Scale: 2 (Nan Burgos RN) Pain Presence: Constant (Nan Burgos RN) Pain Type: Pressure; Ache (Nan Burgos RN) Pain Location: Abdomen (Nan Burgos RN) Pain Relief Measures: Comfort Measures (Nan Burgos RN) Datetime: 07/29/2016 09:59 Pulse: 64 (QS system process) SpO2 (%): 100 (QS system process) Datetime: 07/29/2016 09:55 NBP Sys/Thao/Mean (mmHg): 115 (QS system process) : 67 (QS system process) : 86 (QS system process) Pulse: 74 (QS system process) Datetime: 07/29/2016 09:54 Pulse: 64 (QS system process) SpO2 (%): 100 (QS system process) Datetime: 07/29/2016 09:50 NBP Sys/Thao/Mean (mmHg): 114 (QS system process) : 69 (QS system process) : 87 (QS system process) Pulse: 151 (QS system process) Datetime: 07/29/2016 09:49 Pulse: 70 (QS system process) SpO2 (%): 100 (QS system process) Datetime: 07/29/2016 09:45 Stage of : Recovery (Nan Burgos RN) NBP Sys/Thao/Mean (mmHg): 117 (QS system process) : 71 (QS system process) : 90 (QS system process) Pulse: 71 (QS system process) Respirations: 18 (Nan Burgos RN) Pain Scale: 2 (Nan Burgos RN) Pain Presence: Constant (Nan Burgos RN) Pain Type: Pressure; Ache (Nan Burgso RN) Pain Location: Abdomen (Nan Burgos RN) Pain Relief Measures: Comfort Measures (Nan Burgos RN) Pain Assessment Comments: PT REPORTS RT SHOULDER PAIN @ 0/5 (Nan Burgos RN) Datetime: 07/29/2016 09:44 Pulse: 74 (QS system process) SpO2 (%): 100 (QS system process) Datetime: 07/29/2016 09:40 NBP Sys/Thao/Mean (mmHg): 114 (QS system process) : 64 (QS system process) : 84 (QS system process) Pulse: 61 (QS system process) Datetime: 07/29/2016 09:39 Pulse: 78 (QS system process) SpO2 (%): 100 (QS system process) Datetime: 07/29/2016 09:35 NBP Sys/Thao/Mean (mmHg): 114 (QS system process) : 71 (QS system process) : 89 (QS system process) Pulse: 75 (QS system process) Datetime: 07/29/2016 09:34 Pulse: 62 (QS system process) SpO2 (%): 100 (QS system process) Datetime: 07/29/2016 09:31 Stage of : Recovery (Nan Burgos RN) Pain Scale: 2 (Nan Burgos RN) Pain Relief Measures: Pain Medication Given; Comfort Measures (Nan Burgos, MARLENE) Datetime: 07/29/2016 09:30 Stage of : Recovery (Nan Burgos RN) NBP Sys/Thao/Mean (mmHg): 114 (QS system process) : 67 (QS system process) : 85 (QS system process) Pulse: 65 (QS system process) Respirations: 18 (Nan Burgos RN) Pain Scale: 2 (Nan Burgos RN) Pain Presence: Constant (Nan Burgos RN) Pain Type: Sharp; Ache (Nan Burgos RN) Pain Location: RT SHOULDER (Nan Burgos RN) Pain Relief Measures: Pain Medication Given; Comfort Measures (Annotations: HOT PACK TO RT SHOULDER) (Nan Burgos RN) Datetime: 07/29/2016 09:29 Pulse: 75 (QS system process) SpO2 (%): 100 (QS system process) Datetime: 07/29/2016 09:28 Stage of : Recovery (Nan Burgos RN) Pain Scale: 2 (Nan Burgos RN) Pain Presence: Constant (Nan Burgos RN) Pain Type: Sharp; Ache (Nan Burgos RN) Pain Location: RT SHOULDER (Nan Osmanlund, RN) Pain Relief Measures: Pain Medication Given; Comfort Measures (Nan Burgos, RN) Datetime: 07/29/2016 09:25 NBP Sys/Thao/Mean (mmHg): 108 (QS system process) : 57 (QS system process) : 78 (QS system process) Pulse: 73 (QS system process) Datetime: 07/29/2016 09:24 Pulse: 77 (QS system process) SpO2 (%): 100 (QS system process) Datetime: 07/29/2016 09:20 NBP Sys/Thao/Mean (mmHg): 108 (QS system process) : 59 (QS system process) : 77 (QS system process) Pulse: 67 (QS system process) Datetime: 07/29/2016 09:19 Pulse: 71 (QS system process) SpO2 (%): 100 (QS system process) Datetime: 07/29/2016 09:15 Stage of : Recovery (Nan Burgos RN) NBP Sys/Thao/Mean (mmHg): 84 (QS system process) : 48 (QS system process) : 63 (QS system process) Pulse: 65 (QS system process) Respirations: 18 (Nan Burgos RN) Pain Scale: 2 (Nan Burgos RN) Pain Presence: Constant (Nan Burgos RN) Pain Type: Sharp; Ache (Nan Burgos RN) Pain Location: RT SHOULDER (Nan Burgos RN) Pain Relief Measures: Comfort Measures (Nan Burgos RN) Pain Assessment Comments: PT REPORTS NOT FEELING RIGHT- HYPOTENSIVE, IVF BOLUS STARTED, DR MUSA NOTIFIED- CONTINUE IVF BOLUS- NOTIFY MD IF PRESSURES DONE INCREASE. (Nan Burgos, MARLENE) Datetime: 07/29/2016 09:14 Pulse: 77 (QS system process) SpO2 (%): 98 (QS system process) Datetime: 07/29/2016 09:11 NBP Sys/Thao/Mean (mmHg): 94 (QS system process) : 46 (QS system process) : 66 (QS system process) Pulse: 65 (QS system process) Datetime: 07/29/2016 09:09 Pulse: 67 (QS system process) SpO2 (%): 100 (QS system process) Datetime: 07/29/2016 09:05 NBP Sys/Thao/Mean (mmHg): 103 (QS system process) : 51 (QS system process) : 72 (QS system process) Pulse: 70 (QS system process) Datetime: 07/29/2016 09:04 Pulse: 73 (QS system process) SpO2 (%): 98 (QS system process) Datetime: 07/29/2016 09:00 Stage of : Recovery (Nan Burgos RN) NBP Sys/Thao/Mean (mmHg): 99 (QS system process) : 54 (QS system process) : 69 (QS system process) Pulse: 66 (QS system process) Respirations: 16 (Nan Burgos RN) Temperature (F): 97.8 (Nan Burgos RN) Temperature (C): 36.6 (QS system process) Temperature Route: Oral (Nan Burgos RN) Pain Scale: 2 (Nan Burgos RN) Pain Presence: Constant (Nan Burgos RN) Pain Type: Sharp; Ache (Nan Burgos RN) Pain Location: Other (Annotations: RT SHOULDER) (Nan Burgos RN) Pain Goal: 1 (Nan Burgos RN) Pain Relief Measures: Comfort Measures (Nan Burgos RN) Datetime: 07/29/2016 08:59 Pulse: 69 (QS system process) SpO2 (%): 98 (QS system process) LaborFlag: Antepartum (QS system process)
[2016-07-29] MEDS ORDERED: GUAIFENESIN SYRP 200 MG/10 ML UDC PO PRN (20:45)
[2016-07-30] MEDS: KETOROLAC TROMETHAMINE INJ/PF 30 MG/1 ML SDV IV SCH (01:12)
[2016-07-30] MEDS: OXYCODONE-ACETAMINOPHEN 5-325 MG TABLET PO PRN ×3 (03:38→20:07)
[2016-07-30] MEDS: ALBUTEROL SULFATE 0.083% NEB 2.5 MG/3 ML AMPUL NEB PRN ×3 (03:47→19:47)
--- NOTE | 2016-07-30 06:01 | L&D Current Admission ---
Current Admit Datetime Report Generated by CPN: 07/30/2016 06:00 ADMISSION INFORMATION Chief Complaint: Contractions (07/21/2016 06:45:Janice Jiménez, MARLENE)
--- NOTE | 2016-07-30 06:01 | L&D General Admission ---
General Admit Datetime Report Generated by CPN: 07/30/2016 06:00 INFORMATION Patient Age: 30 (05/21/2016 13:00:QS system process) EDC: 08/04/2016 00:00 (07/21/2016 06:27:Susannah West RN) : 3 (07/21/2016 06:27:Janice Jiménez RN) Para: 1 (07/21/2016 06:27:Janice Jiménez RN) Term: 1 (07/21/2016 06:27:Janice Jiménez RN) : 0 (07/21/2016 06:27:Janice Jiménez RN) Spontaneous Abortions: 1 (07/21/2016 06:27:Janice Jiménez RN) Livin (07/21/2016 06:27:Janice Jiménez RN) CARE [employer] Tutor: [employer] (07/21/2016 06:27:Janice Jiménez RN) Month of 1st Visit: October (07/21/2016 06:27:Janice Jiménez RN) Adequate Care: Yes (07/21/2016 06:27:Janice Jiménez RN) Height (in): 67 (07/29/2016 08:59:riskmethods system process) ALLERGIES Medication Allergy: No (07/21/2016 06:27:Janice Jiménez RN) Medication Allergies: No Known Allergies (07/21/2016) (07/21/2016 07:38:QS system process) Latex Allergy: No Latex Allergies (07/21/2016 06:27:Janice Jiménez RN) COMMUNICATION Primary Language: Estonian (07/21/2016 06:27:Janice Jiménez RN) Medical Tx Preferred Language: Estonian (07/21/2016 06:27:Janice Jiménez RN) DEMOGRAPHICS Address: [address] [place] [id number] (07/21/2016 06:25:QS system process) Zipcode: [address] (06/30/2016 17:33:QS system process) Home (05/21/2016 13:00:QS system process) SSN: [id number] (05/21/2016 13:00:QS system process) Next of Kin Name: DESTINI FRAZIER (05/21/2016 13:00:QS system process) Next of Kin (05/21/2016 13:00:QS system process) Next of Kin Relationship: MO (05/21/2016 13:00:QS system process) Date of : 1985 (05/21/2016 13:00:QS system process) Marital Status: (05/21/2016 13:00:QS system process) Sex: Female (05/21/2016 13:00:QS system process) Race: (05/21/2016 13:00:QS system process) Ethnicity: Non- or (05/21/2016 13:00:QS system process) Episcopalian: None (06/30/2016 17:33:QS system process) DRUG AND ALCOHOL USE Alcohol: No (07/21/2016 06:27:Janice Jiménez RN) Cigarettes: Current Everyday Smoker. 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: [employer] (07/21/2016 06:27:Janice Jiménez RN) Feeding Preference: Formula (07/21/2016 06:27:Janice Jiménez RN) Benefit of Breast Feed Discussed: Yes (07/21/2016 06:27:Janice Jiménez RN) Circumcision: N/A (07/21/2016 06:27:Janice Jiménez RN) Classes Attended: No (07/21/2016 06:27:Janice Jiménez RN) Tubal Authorization Signed: N/A (07/21/2016 06:27:Janice Jiménez RN) Consent: N/A (07/21/2016 06:27:Janice Jiménez RN) Consent Signed: No (07/21/2016 06:27:Janice Jiménez RN) Plans for Labor and Delivery: None (07/21/2016 06:27:Janice Jiménez RN) Support Person: Destini (07/21/2016 06:27:Janice Jiménez RN) Support Person Relationship: Mother (07/21/2016 06:27:Janice Jiménez RN) Cultural/Spritual Practice: No (07/21/2016 06:27:Janice Jiménez RN) Spir/Cult Dietary Needs: No (07/21/2016 06:27:Janice Jiménez RN) LIVING SITUATION/DISCHARGE PLAN Living Arrangements: House (07/21/2016 06:27:Janice Jiménez RN) Adequate Access to:: Electric; Heat; Refrigeration; Plumbing/Running water; Phone; Transportation (07/21/2016 06:27:Janice Jiménez RN) WIC Program: Yes (07/21/2016 06:27:Janice Jiménez RN) Discharge Hand Cooper Helper Person: (07/21/2016 06:27:Janice Jiménez RN) Person to Help after Discharge: (07/21/2016 06:27:Janice Jiménez RN) Specify Current Resource Used: WIC (07/21/2016 06:27:Janice Jiménez RN) Outside Agency/Microbiology Lab Assistant: No (07/21/2016 06:27:Janice Jiménez RN) Car Seat for Discharge: Yes (07/21/2016 06:27:Janice Jiménez RN) Adoption Requested: No (07/21/2016 06:27:Janice Jiménez RN) LABS Blood Type: O Positive (07/21/2016 06:27:Ophelia Tolbert RN) Antibody Screen: negative (Annotations: Data stored by CPN on behalf of user) (07/21/2016 06:27:Ophelia Tolbert RN) Hemoglobin: 11.1 L (07/28/2016 09:33:QS system process) Hematocrit: 33.1 L (07/28/2016 09:33:QS system process) MCV: 79 L (07/28/2016 09:33:QS system process) RPR/VDRL: Nonreactive (07/21/2016 06:27:Ophelia Tolbert RN) HIV Results: non-reactive (07/21/2016 06:27:Ophelia Tolbert RN) Hepatitis B: Negative (07/21/2016 06:27:Ophelia Tolbert RN) Rubella: Immune (07/21/2016 06:27:Ophelia Tolbert RN) Rubella Titer: 2.70 (07/21/2016 06:27:Ophelia Tolbert RN) Varicella: Non Susceptible (07/21/2016 06:27:Ophelia Tolbert RN) OB/PREVIOUS HISTORY Previous Procedures: Ultrasound (07/21/2016 06:27:Janice Jiménez RN) Current Procedures: Ultrasound (07/21/2016 06:27:Janice Jiménez RN) History of Previous : No (07/21/2016 06:27:Janice Jiménez RN) History of Gestational Diabetes: No (07/21/2016 06:27:Janice Jiménez RN) History of PIH: No (07/21/2016 06:27:Janice Jiménez RN) History of Incompetent Cervix: No (07/21/2016 06:27:Janice Jiménez RN) History of Placenta Previa/Abrup: No (07/21/2016 06:27:Janice Jiménez RN) History of Macrosomia: No (07/21/2016 06:27:Janice Jiménez RN) History of IUGR: No (07/21/2016 06:27:Janice Jiménez RN) History of Hemorrhage: No (07/21/2016 06:27:Janice Jiménez RN) History of Loss/Stillborn: No (07/21/2016 06:27:Janice Jiménez RN) History of : No (07/21/2016 06:27:Janice Jiménez RN) History of D (Rh) Sensitization: No (07/21/2016 06:27:Janice Jiménez RN) History Recurrent Loss/Stillborn: No (07/21/2016 06:27:Janice Jiménez RN) History Depression/PP Depression: No (07/21/2016 06:27:Janice Jiménez RN) History of Uterine Anomaly/GITA: No (07/21/2016 06:27:Janice Jiménez RN) History of Infertility: No (07/21/2016 06:27:Janice Jiménez RN) History of ART Treatment: No (07/21/2016 06:27:Janice Jiménez RN) History of GITA: No (07/21/2016 06:27:Janice Jiménez RN) Comments Obstetrical History: 2009- baby girl (reason-baby weight) 2015- 2016 current (07/21/2016 06:27:Janice Jiménez RN) MEDICAL HISTORY Med Hx Diabetes: No (07/21/2016 06:27:Janice Jiménez RN) Med Hx Hypertension: No (07/21/2016 06:27:Janice Jiménez RN) Med Hx Heart Disease: No (07/21/2016 06:27:Janice Jiménez RN) Med Hx Autoimmune Disorder: No (07/21/2016 06:27:Janice Jiménez RN) Med Hx Kidney Disease/UTI: No (07/21/2016 06:27:Janice Jiménez RN) Med Hx Neurologic/Epilepsy: No (07/21/2016 06:27:Janice Jiménez RN) Med Hx Psychiatric Disorders: No (07/21/2016 06:27:Janice Jiménez RN) Med Hx Hepatitis/Liver Disease: No (07/21/2016 06:27:Janice Jiménez RN) Med Hx Varicosities/Phlebitis: No (07/21/2016 06:27:Janice Jiménez RN) Med Hx Thyroid Dysfunction: No (07/21/2016 06:27:Janice Jiménez RN) Med Hx Trauma/Violence: No (07/21/2016 06:27:Janice Jiménez RN) Med Hx Blood Transfusion: No (07/21/2016 06:27:Janice Jiménez RN) Med Hx Pulmonary (Asthma,TB): No (07/21/2016 06:27:Janice Jiménez RN) Med Hx Breast: No (07/21/2016 06:27:Janice Jiménez RN) Med Hx BANDSAW OPERATOR Surgery: Yes (07/21/2016 06:27:Janice Jiménez RN) Med Hx Hospitalization/Surgery: No (07/21/2016 06:27:Janice Jiménez RN) Med Hx Anesthetic Complications: No (07/21/2016 06:27:Janice Jiménez RN) Med Hx Abnormal Pap Smear: Yes (07/21/2016 06:27:Janice Jiménez RN) Other Medical Diseases: No (07/21/2016 06:27:Janice Jiménez RN) Med Hx Significant Family Hx: No (07/21/2016 06:27:Janice Jiménez RN) Details of Med/Surg Hx: 2009 2002 HPV (07/21/2016 06:27:Janice Jiménez RN) INFECTIOUS HISTORY Inf Hx Gonorrhea: No (07/21/2016 06:27:Janice Jiménez RN) Inf Hx Chlamydia: No (07/21/2016 06:27:Janice Jiménez RN) Inf Hx Syphilis: No (07/21/2016 06:27:Janice Jiménez RN) Inf Hx HIV/AIDS: No (07/21/2016 06:27:Janice Jiménez RN) Inf Hx Human Papilloma Virus: Yes (07/21/2016 06:27:Janice Jiménez RN) Inf Hx Pt/Partner Genital Herpes: No (07/21/2016 06:27:Janice Jiménez RN) Inf Hx Tuberculosis/Exposure: No (07/21/2016 06:27:Janice Jiménez RN) Inf Hx Hepatitis B,C: No (07/21/2016 06:27:Janice Jiménez RN) Inf Hx Rash or Viral Illness: No (07/21/2016 06:27:Janice Jiménez RN) GENETIC HISTORY Gen Hx Age >=35 at [facility]: No (07/21/2016 06:27:Janice Jiménez RN) Gen Hx Thalassemia: No (07/21/2016 06:27:Janice Jiménez RN) Gen Hx Congenital Heart Defect: No (07/21/2016 06:27:Janice Jiménez RN) Gen Hx Neural Tube Defect: No (07/21/2016 06:27:Janice Jiménez RN) Gen Hx Down's Syndrome: No (07/21/2016 06:27:Janice Jiménez RN) Gen Hx Sam-Sachs: No (07/21/2016 06:27:Janice Jiménez RN) Gen Hx Manny: No (07/21/2016 06:27:Janice Jiménez RN) Gen Hx Familial Dysautonomia: No (07/21/2016 06:27:Janice Jiménez RN) Gen Hx Sickle Cell Disease/Trait: No (07/21/2016 06:27:Janice Jiménez RN) Gen Hx Hemophilia/Blood Disorder: No (07/21/2016 06:27:Janice Jiménez RN) Gen Hx Muscular Dystrophy: No (07/21/2016 06:27:Janice Jiménez RN) Gen Hx Cystic Fibrosis: No (07/21/2016 06:27:Janice Jiménez RN) Gen Hx [place] Chorea: No (07/21/2016 06:27:Janice Jiménez RN) Gen Hx Mental Retardation/Autism: No (07/21/2016 06:27:Janice Jiménez RN) Gen Hx Tested for Fragile X: No (07/21/2016 06:27:Janice Jiménez RN) Gen Hx Other Inher/Chromosomal: No (07/21/2016 06:27:Janice Jiménez RN) Gen Hx Maternal Metabolic DO: No (07/21/2016 06:27:Janice Jiménez RN) Gen Hx Pt Father or FOB Defect: No (07/21/2016 06:27:Janice Jiménez RN) Gen Hx Other Genetic History: No (07/21/2016 06:27:Janice Jiménez RN) Gen Hx Drugs/Meds since LMP: No (07/21/2016 06:27:Janice Jiménez RN)
[2016-07-30 06:14] LABS: MEAN CORPUSCULAR VOLUME 80 fl (80-97)
[2016-07-30 06:22] LABS: HEMATOCRIT 26.1 % (36.0-47.0); HEMOGLOBIN 8.4 g/dL (12.0-15.5); HGB HCT DIFFERENCE -0.9; MEAN CORPUSCULAR HEMOGLOBIN 25.9 pg (27.0-33.4); MEAN CORPUSCULAR HGB CONC 32.3 g/dL (32.0-36.0); RED BLOOD COUNT 3.26 10^6/uL (3.72-5.28); WHITE BLOOD COUNT 7.4 10^3/uL (4.0-10.5)
[2016-07-30] MEDS ORDERED: OXYCODONE HCL IR 5 MG TABLET ONE (08:28)
[2016-07-30] MEDS ORDERED: PRENATAL VITAMIN W-O CA NO5/FE FUMARATE/FA CAPSULE PO SCH (10:00)
[2016-07-30] MEDS: SIMETHICONE 80 MG TAB.CHEW PO PRN ×2 (11:04→18:47)
--- NOTE | 2016-07-30 11:47 | PDOC PROGRESS REPORT ---
Subjective-OB Subjective: Post Delivery Day: 30 year old. Denies any needs at this time. Pt doing well, no concerns. She reports light bleeding, regular diet, +flatus and voiding without difficulty. Physical Exam (OB) Vital Signs: Temp Pulse Resp BP Pulse Ox 97.7 F 80 20 115/83 100 07/30/16 08:18 07/30/16 08:18 07/30/16 03:25 07/30/16 08:18 07/30/16 08:18 Intake & Output 07/29/16 07/30/16 07/31/16 06:59 06:59 06:59 Intake Total 2425 Output Total 2600 Balance -175 Weight 108.7 kg - Dressing Removed: Yes - Medipore Incision: Dressing, Well Approximated - Lochia Lochia Amount: Small 10-25 ml Lochia Color: Rubra/Red - Abdomen Description: Tender, Soft, Round Hernia Present: No Fundal Description: Firm, Midline Fundal Height: u/u - u/2 Objective-Diagnostic Laboratory: 07/30/16 05:57 07/30/16 05:57 WBC 7.4 RBC 3.26 L Hgb 8.4 L D Hct 26.1 L MCV 80 MCH 25.9 L MCHC 32.3 RDW 17.0 H Plt Count 252 Assessment and Plan(PN) - Assessment and Plan (1) Anemia due to acute blood loss Is this a current diagnosis for this admission?: Yes (2) delivery delivered Is this a current diagnosis for this admission?: Yes - Time Spent with Patient Time with patient: Less than 15 minutes Medications reviewed and adjusted accordingly: Yes - Disposition Anticipated Discharge: Home Within: within 24 hours
[2016-07-30] MEDS: IBUPROFEN 800 MG TABLET PO SCH ×3 (11:48→23:44)
[2016-07-30] MEDS: FERROUS SULFATE 325 MG TABLET PO SCH ×2 (14:26→18:40)
[2016-07-30] MEDS: ASCORBIC ACID 500 MG TABLET PO SCH (18:40)
[2016-07-30] MEDS: DOCUSATE SODIUM 100 MG CAPSULE PO SCH (18:40)
[2016-07-31] MEDS: OXYCODONE-ACETAMINOPHEN 5-325 MG TABLET PO PRN ×3 (00:09→09:34)
[2016-07-31] MEDS: IBUPROFEN 800 MG TABLET PO SCH ×2 (05:39→12:30)
[2016-07-31] MEDS: ALBUTEROL SULFATE 0.083% NEB 2.5 MG/3 ML AMPUL NEB PRN (09:29)
[2016-07-31] MEDS: ASCORBIC ACID 500 MG TABLET PO SCH (09:33)
[2016-07-31] MEDS: FERROUS SULFATE 325 MG TABLET PO SCH (09:34)
[2016-07-31] MEDS: DOCUSATE SODIUM 100 MG CAPSULE PO SCH (09:34)
--- NOTE | 2016-07-31 10:47 | PDOC PROGRESS REPORT ---
Subjective-OB Subjective: Post Delivery Day: 30 year old. Denies any needs at this time. Ready to go home. Physical Exam (OB) Vital Signs: Temp Pulse Resp BP Pulse Ox 97.6 F 80 18 98/80 L 98 07/31/16 08:30 07/31/16 09:33 07/31/16 09:33 07/31/16 08:30 07/31/16 09:33 Intake & Output 07/30/16 07/31/16 08/01/16 06:59 06:59 06:59 Intake Total 2425 250 Output Total 2600 Balance -175 250 - Dressing Removed: No - op site Incision: Dressing - Lochia Lochia Amount: Small 10-25 ml Lochia Color: Rubra/Red - Abdomen Description: Soft, Round Hernia Present: No Bowel Sounds: Normoactive Flatus Presence: Present Stool: No Fundal Description: Firm, Midline Fundal Height: u/u - u/2 Objective-Diagnostic Laboratory: 07/30/16 05:57 Assessment and Plan(PN) - Time Spent with Patient Medications reviewed and adjusted accordingly: Yes - Disposition Anticipated Discharge: Home
--- NOTE | 2016-07-31 11:05 | PDOC DISCHARGE SUMMARY ---
Final Diagnosis Discharge Date: 07/31/16 - Final Diagnosis (1) Anemia due to acute blood loss Is this a current diagnosis for this admission?: Yes (2) delivery delivered Is this a current diagnosis for this admission?: Yes (3) Marijuana abuse Is this a current diagnosis for this admission?: Yes (4) Obesity Is this a current diagnosis for this admission?: Yes (5) Is this a current diagnosis for this admission?: Yes Discharge Data - Discharge Medication Home Medications: #57/Iron/FA/Dss/Dha [Extra-Virt Plus Dha Softgel] 1 each PO DAILY 07/21 Ferrous Sulfate [Iron] 325 mg PO BID 07/29/16 Docusate Sodium [Colace 100 mg Capsule] 100 mg PO BID #30 capsule 07/31/16 Ferrous Sulfate [Feosol 325 mg Tablet] 325 mg PO TID #0 tablet 07/31/16 Ibuprofen [Motrin 800 mg Tablet] 800 mg PO Q6 #30 tablet 07/31/16 Oxycodone HCl/Acetaminophen [Percocet 5-325 mg Tablet] 1 tab PO Q4HP PRN #20 tablet 07/31/16 Gestational Age: 39.1 wks Reason(s) for Admission: Ceasarean Section-Repeat Procedures: Ultrasound Intrapartum Procedure(s): : Low Cervical, Transverse - Data Baby 1 Female at 1 minute: 8 at 5 minutes: 9 Weight: 3.459 kg Home with Mother: Yes Complications: No - Diagnosis Test Laboratory: Temp Pulse Resp BP Pulse Ox 97.6 F 80 18 98/80 L 98 07/31/16 08:30 07/31/16 09:33 07/31/16 09:33 07/31/16 08:30 07/31/16 09:33 07/28/16 07/28/16 07/30/16 09:30 09:33 05:57 RBC 4.20 3.26 L Hgb 11.1 L 8.4 L D Hct 33.1 L 26.1 L Urine Opiates Screen NEGATIVE - Discharge information/Instructions Discharge Activity: Activity As Tolerated, Balance Activity w/Rest, No Lifting Over 10 Pounds, No Lifting/Push/Pulling, Non-Ambulatory Child, Pelvic Rest, Slowly Increase Activity, No tub bath Discharge Diet: Regular Disposition: HOME, SELF-CARE Follow up with: [facility] in: 1, Weeks
[2016-07-31 12:08] VITALS: BP 113/67
--- NOTE | 2016-09-16 09:33 | OPERATIVE REPORT E ---
Operative Report NAME: NAZIA HEATH : 1985 AGE: 30Y DATE OF SURGERY: 08/29/2016 ROOM: 224 PREOPERATIVE DIAGNOSES: 1. A 39-week intrauterine . 2. History of section, for repeat. POSTOPERATIVE DIAGNOSES: 1. A 39-week intrauterine . 2. History of section, for repeat. PROCEDURE: Repeat low transverse section. SURGEON: Abdoul Chan D.O. GENERAL COUNSEL: None. ANESTHESIA: Spinal. COMPLICATIONS: None. PATHOLOGY: Placenta. ESTIMATED BLOOD LOSS: 600 mL. FINDINGS: 1. Viable female infant at 8:27 a.m. on 07/29/2016. Apgars 8 at 1 minute and 9 at 5 minutes. Weight pending dictation. 2. Normal appearing bilateral fallopian tubes and ovaries. PROCEDURE: Patient was taken to the operating room where spinal anesthesia was administered. Once this was done, she was placed in the dorsal supine position with a leftward tilt upon the operating room table. She was then prepped and draped in normal sterile fashion. A scalpel was then used to make a Pfannenstiel skin incision. The skin incision was carried down through the subcutaneous tissues to the layer of the fascia. Fascia was then incised in the midline. The fascial incision was then extended bilaterally using the Bovie cautery. The superior fascial edge was gasped by Shania clamps, elevated, and the rectus muscles dissected off sharply and bluntly. Attention was then turned to the inferior fascial edge where the rectus muscles were dissected off sharply and bluntly. The rectus muscles were then in the midline, perineum identified, and entered bluntly with the surgeon's hands. Bladder blade was then inserted. A scalpel was then used to make a low transverse hysterotomy incision. The was found to be in cephalic position and delivered through this incision without difficulty and atraumatically. The nose and mouth were suctioned. Cord was clamped and cut. The was handed off to the awaiting nurses. Cord blood was obtained. The placenta was then manually removed from the uterus. The uterus was then exteriorized and cleared of all clots and debris. The hysterotomy incision was then reapproximated using 2 layers of 1-0 Vicryl in a running locking fashion. Following closure of the second layer, excellent hemostasis was noted. The uterus was then returned to the abdomen. Again, the hysterotomy incision was reinspected and found to have excellent hemostasis. Rectus muscles were then reapproximated using 1-0 Vicryl interrupted sutures. The fascia was then closed using 1-0 Vicryl in a running nonlocking fashion. The subcutaneous space was then made hemostatic using Bovie cautery. The skin was then closed using dissolvable dawn, covered with an OpSite, and then with a pressure dressing. At this point in time, the procedure was terminated. All sponge, lap, and needle counts were correct x2. Patient tolerated the procedure well. Patient was taken to the recovery room in stable condition. DICTATING PHYSICIAN: Abdoul Chan DO [id number] PHY#: [id number] ID: [id number] JOB#: [id number] ACCT: [id number] cc:Abdoul Chan D.O. >
== END 2016-07-31 12:47 | disposition home or self-care (01) | DRG 765 ==
LOC: 2S 05:02
PROVIDERS: ADMIT Obstetrics & Gynecology; ATTEND Obstetrics & Gynecology
PROC: 4A1HXCZ Monitoring of Products of Conception, Cardiac Rate, External Approach (ICD-10-PCS; 2016-07-29)
PROC: 10D00Z1 Extraction of Products of Conception, Low, Open Approach (ICD-10-PCS; principal; 2016-07-29 07:45)
DX: O34.211 Maternal care for low transverse scar from previous cesarean delivery (principal); D62 Acute posthemorrhagic anemia; O99.324 Drug use complicating childbirth; O99.02 Anemia complicating childbirth; F12.10 Cannabis abuse, uncomplicated; O99.214 Obesity complicating childbirth; E66.9 Obesity, unspecified; Z68.37 Body mass index [BMI] 37.0-37.9, adult; O99.334 Smoking (tobacco) complicating childbirth; F17.210 Nicotine dependence, cigarettes, uncomplicated; Z53.29 Procedure and treatment not carried out because of patient's decision for other reasons; Z3A.39 39 weeks gestation of pregnancy; Z37.0 Single live birth
CPT/HCPCS: 1961; 36415; 59025; 80307; 81001; 85025; 85027; 86850; 86900; 86901; 88307; 94640; 94799; G0480; J0131; J0690; J1170; J1885; J2250; J2370; J2405; J2590; J2704; J3010; J3490; J7120

== ENCOUNTER 2018-05-14 19:29 | Emergency (ER) | payer SELFPAY ==
[2018-05-14] MEDS ORDERED: OXYCODONE-ACETAMINOPHEN 5-325 MG TABLET PO ONE (19:50)
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
[2018-05-14] MEDS ORDERED: PROMETHAZINE HCL 25 MG TABLET ONE (20:05)
[2018-05-14] MEDS ORDERED: DIPH/PERTUSS(ACELL)/TETANUS VAC/PF 0.5 ML SYR (>=10YO) IM ONE (20:34)
[2018-05-14] MEDS ORDERED: AMOXICILLIN TRIHYDRATE 500 MG CAPSULE PO ONE (20:34)
[2018-05-14] MEDS ORDERED: AMOXICILLIN TR/POT CLAVULANATE 500-125 MG TAB PO ONE (20:34)
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
[2018-05-14] MEDS ORDERED: TETRACAINE HCL 0.5% OPH SOLN 4 ML OD ONE (21:34)
[2018-05-14] MEDS ORDERED: HYDROCODONE/ACETAMINOPHEN 5-325 MG (6 TAB/ER DISP) PO PRN (22:08)
[2018-05-14] MEDS ORDERED: ONDANSETRON ODT 4 MG TAB (6 TAB/ER DISP) PO PRN (22:08)
[2018-05-14 22:27] VITALS: BP 109/71
== END 2018-05-14 22:31 | disposition home or self-care (01) ==
LOC: ER 19:29
DX: S00.212A Abrasion of left eyelid and periocular area, initial encounter (principal); S00.211A Abrasion of right eyelid and periocular area, initial encounter; S00.83XA Contusion of other part of head, initial encounter; S00.81XA Abrasion of other part of head, initial encounter; S80.211A Abrasion, right knee, initial encounter; S50.02XA Contusion of left elbow, initial encounter; S50.01XA Contusion of right elbow, initial encounter; S80.12XA Contusion of left lower leg, initial encounter; S80.11XA Contusion of right lower leg, initial encounter; S61.452A Open bite of left hand, initial encounter; H53.8 Other visual disturbances; Y04.1XXA Assault by human bite, initial encounter; Y04.8XXA Assault by other bodily force, initial encounter; Y92.89 Other specified places as the place of occurrence of the external cause; F17.200 Nicotine dependence, unspecified, uncomplicated
CPT/HCPCS: 99284; 90471; 70450; 70486; 72125; 90715; J3490